=== PATIENT | male | born 1990 | race Caucasian/White ===

== ENCOUNTER → 2022-07-16 | Outpatient (CLI) | payer MEDICAID ==
[2022-07-17 00:34] LABS: Microalbumin Creatinine Ratio <30 mg/g Creat (0-30)
[2022-07-17 01:35] LABS: African American GFR (CKD) 135.1 (60.0-200.0); Albumin 4.6 g/dL (3.8-4.9); Anion Gap 7.3 mmol/L (10.00-18.00); BUN/Creat Ratio 23.75 Ratio (12.00-20.00); Calcium 9.1 mg/dL (8.7-10.3); Carbon Dioxide 29.7 mmol/L (20.0-27.5); Globulin 2.3 g/dL (1.6-3.3); HDL Cholesterol 66.5 mg/dL (40.00-60.00); Non-African American GFR(CKD) 116.6 (60.0-200.0); Potassium 4.2 mmol/L (3.5-5.5); Total Bilirubin 0.4 mg/dL (0.30-1.20); Total Protein 6.9 g/dL (6.2-8.2); Triglycerides 48.8 mg/dL (0.00-149.00)
[2022-07-17 01:48] LABS: Chol/HDL Ratio 2.38 Ratio; LDL Cholesterol,Direct Reflex 83.3 mg/dL (0.00-129.00)
== END | disposition home or self-care (01) ==
LOC: LABWHC1 14:39
PROVIDERS: ATTEND Orthopaedic Surgery Hand Surgery
DX: E10.9 Type 1 diabetes mellitus without complications (principal)
CPT/HCPCS: 36415; 80053; 80061; 82043; 82570; 83721; 84443

== ENCOUNTER → 2024-01-29 | Outpatient (CLI) | payer MEDICAID ==
[2024-01-29 16:31] LABS: ALT 34 U/L (10-49); AST 29 U/L (14-35); Albumin 4.5 g/dL (3.8-4.9); Alkaline Phosphatase 72 U/L (41-126); BUN/Creat Ratio 19.78 Ratio (12.00-20.00); Blood Urea Nitrogen 17.8 mg/dL (9.0-27.0); Calcium 9.9 mg/dL (8.7-10.3); Carbon Dioxide 29.2 mmol/L (21.6-31.8); Chloride 100 mmol/L (96-109); Chol/HDL Ratio 2.62 Ratio; Globulin 2.5 g/dL (1.6-3.3); Glucose 131 mg/dL (70-110); LDL Cholesterol,Calculated 101.5 mg/dL (0.0-131.0); Potassium 4.5 mmol/L (3.5-5.5); Sodium 140 mmol/L (135-145); Total Bilirubin 0.4 mg/dL (0.3-1.2); VLDL Calculation 6.66 mg/dL (5.00-40.00)
[2024-01-29 19:05] LABS: Microalbumin Creatinine Ratio <12 mg/g Cr (0-30); Urine Creatinine 97.3 mg/dL (39.0-259.0)
== END | disposition home or self-care (01) ==
LOC: LABWHC1 10:27
PROVIDERS: ATTEND Internal Medicine
DX: E10.9 Type 1 diabetes mellitus without complications (principal)
CPT/HCPCS: 36415; 80053; 80061; 82043; 82570; 84443